=== PATIENT | male | born 1955 | race Caucasian/White ===

== ENCOUNTER 2019-10-21 09:16 | Emergency (ER) | payer OTHER, BC ==
[~2019-10-21] VITALS: Ht 177.8 cm; Wt 86.2 kg
[2019-10-21 09:17] VITALS: Ht 177.8 cm; Wt 86.2 kg
== END 2019-10-21 10:24 | disposition home or self-care (01) ==
LOC: ED 09:16
DX: J06.9 Acute upper respiratory infection, unspecified (principal); Z20.828 Contact with and (suspected) exposure to other viral communicable diseases
CPT/HCPCS: J7030; U0002